=== PATIENT | male | born 1995 ===

== ENCOUNTER 2018-01-26 11:02 | Observation (INO) | payer OTHER ==
[2018-01-26 11:15] VITALS: BMI 66.4
[2018-01-26] MEDS ORDERED: Tdap Vaccine 0.5 ml Vial (10-64 yrs) IM ONE (11:17)
[2018-01-26] MEDS ORDERED: Piperacillin/Tazobact 4.5 GM in Sodium Chloride 0.9% 100 ML IVPB STA (11:17)
[2018-01-26 11:35] LABS: BASO # 0.1 K/uL (0.0-0.2); BASO % 0.8 % (0.0-2.0); EOS # 0.1 K/uL (0.0-0.7); EOS % 1.7 % (0.0-4.0); HEMOGLOBIN 15.8 g/dL (12.0-18.0); LYMPH # 4.1 K/uL (1.0-4.3); LYMPH % 50.4 % (20.0-40.0); MEAN CELL VOLUME 89.9 fl (80.0-94.0); MEAN CORPUSCULAR HEMOGLOBIN 30.8 pg (27.0-31.0); MEAN CORPUSCULAR HGB CONC 34.3 g/dL (33.0-37.0); MEAN PLATELET VOLUME 10.8 fl (7.2-11.7); MONO # 0.7 K/uL (0.0-0.8); MONO % 8.6 % (0.0-10.0); NEUT # 3.1 K/uL (1.8-7.0); NEUT % 38.5 % (50.0-75.0); NRBC % 0.1 % (0.0-0.0); RBC 5.11 Mil/uL (4.40-5.90); RED CELL DISTRIBUTION WIDTH 13.8 % (11.5-14.5); WHITE BLOOD COUNT 8.1 K/uL (4.8-10.8)
[2018-01-26] MEDS ORDERED: Morphine 4 MG/ML VIAL ONE (11:40)
[2018-01-26 11:44] LABS: PARTIAL THROMBOPLASTIN TIME 31.8 Seconds (25.6-37.1); PROTHROMBIN TIME 11.2 Seconds (9.8-13.1)
[2018-01-26 11:50] LABS: ALB/GLOB RATIO 1.2 (1.0-2.1); ALBUMIN 4.4 g/dL (3.5-5.0); CALCIUM 8.9 mg/dL (8.4-10.2); GFR AFRICAN-AMERICAN > 60; GFR NON-AFRICAN AMERICAN > 60
[2018-01-26 11:54] LABS: ALT/SGPT 42 U/L (21-72); AST/SGOT 32 U/L (17-59); BLOOD UREA NITROGEN 14 mg/dl (9-20)
[2018-01-26] MEDS ORDERED: HYDROmorphone 0.5 mg/0.5 ml ISec ONE (12:03)
[2018-01-26] MEDS ORDERED: HYDROmorphone 0.5 mg/0.5 ml ISec IVP STA (12:06)
--- NOTE | 2018-01-26 12:15 | ED PDOC ---
HPI: Trauma/Fall - HPI Time Seen by Provider: 01/26/18 11:07 Chief Complaint (Nursing): Trauma Chief Complaint (Provider): hand injury History Per: Patient, [employer] History/Exam Limitations: no limitations Injury Occurred (Timing): Just Before Arrival Anterior Full Body: 1 - 2/3/4 digits Severity: Severe Additional Complaint(s): 22yo male arrives w work colleagues states injured R hand on table saw, amputated distal third of 3rd digit with partial distal amputations 2nd and 4th digit. Unknown last tetanus. C/o pain to hand. R hand dominant. Past Medical History Reviewed: Historical Data, Nursing Documentation, Vital Signs Vital Signs: Last Vital Signs Temp 98.0 F 01/26/18 11:16 Pulse 90 01/26/18 11:59 Resp 16 01/26/18 11:59 BP 126/93 H 01/26/18 11:59 Pulse Ox 100 01/26/18 11:59 - Medical History PMH: No Chronic Diseases - Surgical History Surgical History: No Surg Hx - Family History Family History: States: Unknown Family Hx - Home Medications Home Medications: Ambulatory Orders Medication Instructions Recorded oxyCODONE/Acetaminophen [Percocet 1 tab PO TID #12 tab 01/26/18 5/325 mg Tab] - Allergies Allergies/Adverse Reactions: Allergies Allergy/AdvReac Type Severity Reaction Status Date / Time No Known Allergies Allergy Verified 01/26/18 11:15 Review of Systems Constitutional: Negative for: Fever Cardiovascular: Negative for: Chest Pain Respiratory: Negative for: Cough, Shortness of Breath Musculoskeletal: Positive for: Hand Pain. Negative for: Arm Pain, Leg Pain Physical Exam - Reviewed Nursing Documentation Reviewed: Yes Vital Signs Reviewed: Yes - Physical Exam Appears: Positive for: Well, Non-toxic Head Exam: Positive for: ATRAUMATIC Skin: Positive for: Pallor Cardiovascular/Chest: Negative for: Tachycardia Respiratory: Positive for: Normal Breath Sounds. Negative for: Respiratory Distress Extremity: Positive for: Deformity, Other (R hand traumatic amputation distal 3rd digit w mild vevous bleeding, partial amputations 2nd and 4th digits) Neurologic/Psych: Positive for: Alert, Oriented - Laboratory Results Result Diagrams: 01/26/18 11:20 01/26/18 11:20 - ECG ECG: Positive for: Interpreted By Me ECG Rhythm: Positive for: Normal ST Segment, Sinus Rhythm. Negative for: ST/T Changes Rate: 88 O2 Sat by Pulse Oximetry: 100 Medical Decision Making Medical Decision Making: Tetanus and Zosyn ordered, xrays, basic bloodwork, coags, EKG preop ordered. Hand surgeon Dr Winters contacted approx 12p, case discussed will take to OR Amputated partial digit rinsed w sterile saline, placed in cool sterile wrap for hand surgeon although given degree maceration explained reimplantation unlikely, but hand surgeon to eval in OR. Clean sterile dressing applied to stump and macerated 2/4th dights. Last NPO 6am preop EKG reviewed, NSR. family medicine resident in ED to accompany to OR Disposition - Clinical Impression Clinical Impression: Traumatic amputation of fingertip - Patient ED Disposition Is Patient to be Admitted: Yes - Disposition Disposition Time: 11:45 Condition: FAIR Additional Instructions: - Cleared for discharge when PACU D/C criteria has been met - Maintain Right hand volar splint in place. Do not get wet, do not remove. - Right arm sling may be used for comfort af few hours per day - Keep Right hand elevated to the level of the heart as much as possible - Take Antibiotics as prescribed to completion. Keflex 500mg PO QID x2 weeks. - Pain management: Ibuprofen 800mg PO TID prn. Percocet 5/325mg PO TID prn - Patient to follow up with Dr. Trino Winters in office on 01/29/18. Call for appointment. (Office contact information card provided) - Return to the ER with any concerning symptoms Prescriptions: oxyCODONE/Acetaminophen [Percocet 5/325 mg Tab] 1 tab PO TID #12 tab Forms: [employer] (Yoruba)
--- NOTE | 2018-01-26 12:17 | CP.PCM.CON ---
History of Present Illness - History of Present Illness History of Present Illness: Plastic Surgery Consult Note. Dr. Winters 22yo M with no significant PMHx here after right hand injury. Patient states that he was working with a table saw when his hand slipped and got caught in the blade. He immediately put some pressure on the wound and came into the ER for further treatment. He states that he is right handed. He brought the right distal tip of 3rd digit with him and it was placed on ice in the ER. Right hand pain described as severe. He denies any numbness and paresthesias. No F/C. No N/ V/D. Last time he ate was at 6AM, sandwich. PMHx: Denies PSHx: Right inguinal hernia repair with mesh Social Hx: Denies tobacco use. Social ETOH use. Denies illicit drugs Family Hx: Non-contributory NKDA Review of Systems - Review of Systems All systems: reviewed and no additional remarkable complaints except - Constitutional Constitutional: absent: Chills, Fever - Gastrointestinal Gastrointestinal: absent: Diarrhea, Nausea, Vomiting Past Patient History - Infectious Disease Hx of Infectious Diseases: None - Past Social History Smoking Status: Never Smoked - PSYCHIATRIC Hx Psychophysiologic Disorder: No Hx Substance Use: No - SURGICAL HISTORY Hx Surgeries: No - ANESTHESIA Hx Anesthesia: No Meds Home Medications: Home Medication List Medication Instructions Recorded Confirmed Type oxyCODONE/Acetaminophen [Percocet 1 tab PO TID #12 tab 01/26/18 Rx 5/325 mg Tab] Allergies/Adverse Reactions: Allergies Allergy/AdvReac Type Severity Reaction Status Date / Time No Known Allergies Allergy Verified 01/26/18 11:15 Physical Exam - Constitutional Appears: Non-toxic, No Acute Distress - Head Exam Head Exam: ATRAUMATIC, NORMAL INSPECTION, NORMOCEPHALIC - Eye Exam Eye Exam: EOMI - ENT Exam ENT Exam: Mucous Membranes Moist - Neck Exam Neck exam: Positive for: Normal Inspection - Respiratory Exam Respiratory Exam: NORMAL BREATHING PATTERN. absent: Accessory Muscle Use, Respiratory Distress - Cardiovascular Exam Cardiovascular Exam: absent: JVD - Extremities Exam Extremities exam: Negative for: calf tenderness Additional comments: right 3rd digit: complete amputation of the distal third of the right 3rd digit right 2nd digit: partial amputation of the distal third digit. right 4th digit: partial amputation of the distal third digit, at the level of the nail bed. right 5th digit: small approx 1cm laceration/avulsion at the medial aspect of the distal digit. motor intact, poor effort. - Back Exam Back exam: NORMAL INSPECTION Results - Vital Signs Recent Vital Signs: Last Vital Signs Temp 98.0 F 01/26/18 11:16 Pulse 90 01/26/18 11:59 Resp 16 01/26/18 11:59 BP 126/93 H 01/26/18 11:59 Pulse Ox 100 01/26/18 12:15 - Labs Result Diagrams: 01/26/18 11:20 01/26/18 11:20 Labs: Laboratory Results - last 24 hr 01/26/18 01/26/18 01/26/18 11:20 11:20 11:20 WBC 8.1 RBC 5.11 Hgb 15.8 Hct 46.0 MCV 89.9 MCH 30.8 MCHC 34.3 RDW 13.8 Plt Count 232 MPV 10.8 Neut % (Auto) 38.5 L Lymph % (Auto) 50.4 H Irion % (Auto) 8.6 Eos % (Auto) 1.7 Baso % (Auto) 0.8 Neut # (Auto) 3.1 Lymph # (Auto) 4.1 Irion # (Auto) 0.7 Eos # (Auto) 0.1 Baso # (Auto) 0.1 PT 11.2 INR 1.0 APTT 31.8 Sodium 142 Potassium 4.1 Chloride 105 Carbon Dioxide 23 Anion Gap 18 BUN 14 Creatinine 0.8 Est GFR ( Amer) > 60 Est GFR (Non-Af Amer) > 60 Random Glucose 111 H Calcium 8.9 Total Bilirubin 0.8 AST 32 ALT 42 Alkaline Phosphatase 96 Total Protein 7.9 Albumin 4.4 Globulin 3.6 Albumin/Globulin Ratio 1.2 Assessment & Plan - Assessment and Plan (Free Text) Assessment: 22yo M with right hand injury by table saw. - Xrays noted: right 3rd digit partial amputation, comminuted fractures through distal phalanges of 2nd and 4th digit Plan: - Zosyn dose now - Tetanus vaccine - To OR - Consent signed and on chart - Plan for D/C home following procedure. Patient to be discharged home with right hand volar splint (to remain in place, clean and dry), and shoulder sling. - Upon discharge: Ibuprofen 800mg PO TID prn, Percocet 5/325mg PO TID prn, Keflex 500mg PO QID x 2weeks - Patient to follow up with Dr. Trino Winters in office on 01/29/18. Call for appointment Further recs as per Dr. Singh Kang PGY1 surgery pager: [phone]
[2018-01-26] MEDS ORDERED: Rocuronium 10 mg/ml (5 ml) ONE (13:09)
[2018-01-26] MEDS ORDERED: Midazolam 2 MG/2 ML VIAL ONE (13:09)
[2018-01-26] MEDS ORDERED: Succinylcholine 200 mg/10 ml Inj IV ONE (13:09)
[2018-01-26] MEDS ORDERED: Propofol 10 mg/ml Inj (20 ML) ONE (13:09)
[2018-01-26] MEDS ORDERED: Bupivacaine HCl 0.25% PF (30 ml) Inj ONE (13:21)
[2018-01-26] MEDS ORDERED: Lactated Ringer's 1,000 ML IV ONE ×2 (13:25→16:55)
[2018-01-26] MEDS ORDERED: Bupivacaine 0.25% Inj(30mL) IJ ONE (13:40)
[2018-01-26] MEDS ORDERED: Desflurane Inhalation Anesthetic Liq (240 ml) ONE (13:50)
[2018-01-26] MEDS ORDERED: Phenylephrine 10 mg/ml Inj ONE (14:08)
--- NOTE | 2018-01-26 15:07 | RAD ---
PROCEDURE: Right Hand Radiographs. HISTORY: hand trauma, 2 digit table saw COMPARISON: None. FINDINGS: BONES: Comminuted fractures of the distal phalanges of the index and ring fingers are identified with volar angulation at the fracture sites potentially reflection of tendon injury. Clinically correlate. There is partial amputation of the long finger at the level of the middle phalanx distal segment with a few retained bony fragments in local soft tissues. Mild soft tissue edema is seen throughout the sites of injury at the index, long and ring fingers. Fracture/ transection at the distal phalanx index finger may be involve the distal interphalangeal joint but this is not felt to true at the DIP joint of the ring finger. The thumb and small fingers appear intact and are unremarkable as well as the remaining bones of the hand appear JOINTS: As above. SOFT TISSUES: As above. OTHER FINDINGS: None. IMPRESSION: Partial amputation right long finger with comminuted fractures through the distal phalanges of the right index and ring fingers as discussed above through this same plane of transsection of the long finger. Consider potential extensor digitorum longus injury of the index and ring fingers as discussed above.
[2018-01-26] MEDS ORDERED: HYDROmorphone 0.5 mg/0.5 ml ISec IVP PRN (15:30)
[2018-01-26] MEDS ORDERED: Oxycodone/Acetaminophen 5/325 mg Tab PO PRN (16:12)
[2018-01-26] MEDS ORDERED: Silver Sulfadiazine 1% CREAM (50 gm) ONE (16:54)
[2018-01-26 17:45] VITALS: RESP 18; O2SAT 98
[2018-01-26 19:04] VITALS: BP 112/67; PULSE 78; TEMP 97.6
--- NOTE | 2018-02-07 21:24 | CON ---
DATE: 01/26/2018 EMERGENCY ROOM CONSULTATION SURGEON: Trino Winters MD HISTORY OF PRESENT ILLNESS: This is a 22-year-old right-hand dominant male, who was working with a table saw, who badly injured his right second, third and fourth fingers, including amputating completely the right middle finger at the middle phalanx. He was able to bring in the amputated portion of the right middle fingertip. The ER staff consulted me for these partial amp open fractures and significant table saw injuries to his right hand, so I came in emergently. When I came in to evaluate and treat the patient, I reviewed the x-ray, which showed an amputation of the right middle finger at the mid portion of the middle phalanx. The right index and ring finger distal phalanx fractures were comminuted and fractured as well. PHYSICAL EXAMINATION: The patient had an amputation of the right middle finger, transverse at the mid portion of the middle phalanx. The amputated segment was on ice. This was distal to the FDS insertion. He was still able to flex the PIP joint in that finger. On the right second and fourth, ring and index fingers, there was tenderness to the distal phalanx and open fractures of the distal phalanx. He had paresthesias on the ulnar side of the right ring finger and the right index finger. He had good sensation to the radial tip of the right ring finger and the right index finger. He was able to flex and extend the right index and ring fingers normally at the DIP and PIP joints, indicating intact FDP and FDS tendons and is able to extend the fingers normally, indicating intact extensor tendons. There was also a laceration on the right ring finger nail bed. These right index and ring fingertips were living on a radial based 1 cm wide flap. There was good cap refill to the tips, but it was a very narrow pedicle that was radially based. The other bones of the hand were nontender. He had cap refill to the other fingers. The other bones were nontender. His exam was otherwise normal. Through an brick grader, I explained to the patient he has very severe injuries. I told him that this is not a replant center and the mechanism injury was a table saw where the tissues were chopped and the right middle finger at the middle phalanx distal to the FDS tendon is usually not a replantable case. I told him if he wants to be a candidate for replant, he could be transferred to another hospital. He elected not to do this. I told him I would look, but given the mechanism of the injury in the area, he would be better off and he would return to work faster, and return to activities of daily living faster if I did a completion amputation of the finger at the middle phalanx. He agreed to this. In terms of the right index finger and the right ring finger, I told him that the skin flaps may not survive; however, there is good cap refill at this time. I would try to salvage these fingers. I would repair the open fractures with pins. I told him that the nerves are cut, I would try to repair it, but these were distal to the bifurcation of the right index and ring finger ulnar digital nerves. I told him digital nerves once repaired, requires splinting, and they may or may not come back . I also warned him about abnormal nerve growth of the right ring finger, increase injury in the right index finger, he understood this. I told him he will be pinned and splinted for a significant amount of time followed by extensive therapy. He may need to have future operations in the future, he may have stiffness, he may be permanently disabled in terms of his right hand. He understood this and wished to proceed, and I will dictate a separate operative report. Trino Winters MD
--- NOTE | 2018-02-08 06:47 | OP ---
PROCEDURE DATE: 01/26/2018 PREOPERATIVE DIAGNOSES: 1. Right index finger ulnar digital nerve laceration. 2. Right index finger open distal phalanx fracture. 3. A 2.8 cm laceration of right index finger. 4. Amputation and open fracture of right middle finger. 5. Right ring finger nail bed laceration. 6. Right ring finger open distal phalanx fracture. 7. A 2.8 cm right ring finger laceration. 8. Right ring finger ulnar digital nerve laceration. POSTOPERATIVE DIAGNOSES: 1. Right index finger ulnar digital nerve laceration. 2. Right index finger open distal phalanx fracture. 3. A 2.8 cm laceration of right index finger. 4. Amputation and open fracture of right middle finger. 5. Right ring finger nail bed laceration. 6. Right ring finger open distal phalanx fracture. 7. A 2.8 cm right ring finger laceration. 8. Right ring finger ulnar digital nerve laceration. PROCEDURE PERFORMED: 1. Repair of right index finger ulnar digital nerve. 2. Debridement of bone and soft tissue at open fracture site of right index finger distal phalanx. 3. Open reduction internal fixation of right index finger distal phalanx fracture. 4. A 2.8 cm complex closure of right index finger laceration. 5. Completion amputation of right middle finger. 6. Right ring finger nail bed laceration repair. 7. Complex repair of 2.8 cm right ring finger laceration. 8. Open reduction internal fixation of right ring finger distal phalanx fracture. 9. Debridement of right ring finger skin and soft tissue and bone at open fracture site. 10. Repair of right ring finger ulnar digital nerve. 11. Placement of nail plate splint for right ring finger. 12. Right wrist median nerve block. 13. Right wrist ulnar nerve block. 14. Right wrist radial nerve block. SURGEON: Dr. Trino Winters. DIP TANKER SURGEON: Johnathan Kang DO. ANESTHESIOLOGIST: Dr. Winn. TYPE OF ANESTHESIA: General endotracheal tube anesthesia. INDICATIONS FOR PROCEDURE: As follows, please refer to my separately dictated ER consultation for history and physical. DESCRIPTION OF PROCEDURE: As follows, the patient was taken to the operating room emergently, he was given IV antibiotics, SCDs were placed on bilateral lower extremities. The right upper extremity was prepped and draped in the usual clean and sterile manner. The arm was exsanguinated with an Esmarch bandage. The tourniquet was inflated to 250 mmHg. Total tourniquet time for the case was 90 minutes. I first thoroughly irrigated and soaked the open wounds in normal saline and diluted with Betadine several liters for several minutes. We then started with the right middle finger. With the rongeur, we debrided the middle phalanx bone proximally so that we had enough soft tissue coverage. This was done with rongeurs, we even the bone out, we were able to go down proximally on the middle phalanx up until the insertion and we maintained the insertion of the flexor digitorum superficialis tendon. Some of the skin and the soft tissue was debrided with scissor technique. I looked to see if loupe magnification if there is any viable digital nerves and arteries, and they were not visible or viable that I could see. I also looked at the specimen of the amputated segment of the right middle finger with loupes and there were no visible vessels for replantation, even though this is not a replantation case. For the sake of thoroughness, I tried to check to see if there was any chance of that, and there was no vein visible anywhere at all. So, the amputated segment was sent to the lab. After shortening the bone, the flexor digitorum profundus tendon was significantly retracted, already we maintained the flexor digitorum superficialis tendon, did not see any digital nerve that needed to be buried. We then did a completion amputation at the level of the middle phalanx by cutting out some skin and soft tissues using scalpel technique and used a 4-0 Vicryl for the deep dermis to take some tension off the wound and then we closed the skin with vertical mattress of 3-0 Prolene sutures. We were able to do this and completely cover the bone. We then addressed the right index finger and surviving on a 1 cm right radial flap. We first explored the wound, the radial digital nerve was fine, the ulnar digital nerve was lacerated distal to the trifurcation with loupe magnification and microdissecting instruments, we dissected out the branch of the ulnar digital nerve and we did a primary epineural repair with a 9-0 nylon suture. We debrided some bone and soft tissue at the open fracture site with scissor technique, and we debrided some skin. We then closed the skin with 4-0 chromic, it was 2.8 cm laceration with undermining skin and take the tension of the wound and debrided, and then reclosed the skin with 4-0 chromic sutures. We then performed open reduction and percutaneous pinning of the right index finger distal phalanx with the use of mini C-arm and fluoroscopy. Intraoperatively, we placed some 0.45 K-wires in a retrograde manner just volar to the nail bed and crossing the DIP joint going in the mid portion of the middle phalanx. Acceptable alignment was achieved in AP, PA, oblique, reverse oblique and lateral views. The pins were shortened and capped. We then addressed the right ring finger. We did the same exact thing we did on the right index finger. This was also surviving on a radial base 1 cm flap. The ulnar digital nerve distal to the trifurcation was lacerated and repaired under loupe magnification with 9-0 nylon epineural repair. Soft tissue and bone was debrided. Skin was undermined. A 2.8 cm laceration closed with 4-0 chromic suture. The nail plate was removed. The underlying nail bed laceration was repaired with 5-0 fast absorbing sutures in interrupted fashion. We then replaced the nail plate and secured in place with 4-0 chromic sutures as a nail plate splint underneath the eponychium, and then with the 0.35 K-wire in a retrograde manner, we did open reduction and pinning of the right ring finger distal phalanx fracture as that was reduced openly. After doing this, an AP, oblique, reverse oblique, PA and lateral views, acceptable alignment was achieved. The pin was flapped in the middle phalanx across the DIP joint. At this point, the fingers were straight and we were able to get the wounds closed. We placed Xeroform and dry sterile dressing. Jacinta wrap fabricated in in a position of comfort and we removed the tourniquet. I used 0.5% Marcaine in the right wrist ulna, median and radial nerve block for postop analgesia of 15 mL. The patient then awoke from anesthesia, transferred to recovery room in stable condition. FINDINGS: As above. SPECIMENS: Right middle finger amputated segment as well as bone from the other fingers. ESTIMATED BLOOD LOSS: 20 mL. COMPLICATIONS: None. CONDITIONS: Stable. DRAINS: There were no drains. IMPLANTS: Just pins in the right ring finger 0.35 K-wire, right index finger 0.45 K-wire x2. TOURNIQUET TIME: 50 minutes. Trino Winters MD
== END 2018-01-26 20:08 | disposition home or self-care (01) ==
LOC: H.ER 11:02 → H.ERHOLD 11:50 → H.ER 12:58 → H.MEDSURG1 17:38
PROVIDERS: ADMIT Surgery; ATTEND Surgery
DX: S68.112A Complete traumatic metacarpophalangeal amputation of right middle finger, initial encounter (principal); S68.120A Partial traumatic metacarpophalangeal amputation of right index finger, initial encounter; S68.124A Partial traumatic metacarpophalangeal amputation of right ring finger, initial encounter; S61.216A Laceration without foreign body of right little finger without damage to nail, initial encounter; W31.2XXA Contact with powered woodworking and forming machines, initial encounter; Y93.89 Activity, other specified; Y92.69 Other specified industrial and construction area as the place of occurrence of the external cause; Y99.0 Civilian activity done for income or pay; Z23 Encounter for immunization
CPT/HCPCS: 26236; 26765; 73130; 80053; 85025; 85610; 85730; 88305; 88307; 90471; 90715; 96374; 96375; 99285; C1713; G0378; J0330; J1170; J2001; J2250; J2270; J2370; J2543; J2704; J3010; J7030; J7120